=== PATIENT | male | born 1975 | race Caucasian/White ===

== ENCOUNTER 2017-09-05 14:05 | Emergency (ER) | payer SELFPAY ==
--- NOTE | 2017-09-05 14:15 | ED Physician Documentation ---
Abdominal Pain - HISTORIAN Historian: patient - HPI Chief Complaint: Abdominal Pain Additonal Information: 42yo white male with a 30 minute history of sudden left abd/flank pain with radiation into the left testicle. No precipitating factor noted. No modifying factors noted. Patient has become nauseated and diaphoretic with the pain. Has had similar pain with a kidney stone several years ago. Last BM was today and was normal. Urine has been concentrated but no blood noted. Onset: minutes (30 minutes [employer]) Duration: constant, persistent Timing: still present Context: denies: out of country travel, recent trauma Severity: severe Quality: pain, stabbing Associated Symptoms: none. denies: fever, chills Exacerbated by: nothing Relieved by: nothing - ROS CONST: no problems GI/: none. denies: constipation, black stools, bloody urine, bloody stools, dark urine, problems urinating CVS/RESP: none - SOCIAL HX Smoking History: greater than 1 pack/day Alcohol Use: sober Drug Use: none - FAMILY HX Family History: no significant history - PAST HX Past History: none Ischemic Bowel Risk Factors: none Other History: none Surgeries/Procedures: none Immunizations: referred to PCP Home Medications: Ambulatory Orders Medication Instructions Recorded NK [NK] 09/05/17 Allergies/Adverse Reactions: Allergies Allergy/AdvReac Type Severity Reaction Status Date / Time No Known Allergies Allergy Verified 09/05/17 14:15 - VITAL SIGNS Vital Signs: Vital Signs Temp Pulse Resp BP Pulse Ox 96.1 F L 96 H 20 134/85 96 09/05/17 14:05 09/05/17 14:05 09/05/17 14:05 09/05/17 14:05 09/05/17 14:05 - REVIEWED ASSESSMENTS Nursing Assessment Reviewed: Yes Vitals Reviewed: Yes Progress - Progress Progress: 15:10 Patient states that pain went down to about a 2 with [place]. When he came back from [place] started to have some increase pain again. Similar to what he has had earlier. 16:31 Pain is increasing again, is nauseated at this time. ED Results Lab/Radiology - Lab Results Lab Results: Lab Results 09/05/17 09/05/17 14:20 14:20 WBC 11.20 K/ul K/ul (4.00-12.00) RBC 5.18 M/ul M/ul (3.90-5.20) Hgb 15.7 g/dL g/dL (12.0-18.0) Hct 46.0 % % (37.0-53.0) MCV 88.8 fl fl (80.0-100.0) MCH 30.3 pg pg (28.0-34.0) MCHC 34.1 g/dL g/dL (30.0-36.0) RDW 13.3 % % (11.3-14.3) Plt Count 313 K/mm3 K/mm3 (130-400) Neut % (Auto) 55.0 % % (39.0-79.0) Lymph % (Auto) 35.4 % % (16.0-50.0) Beadle % (Auto) 3.5 % % (0.0-11.0) Eos % (Auto) 4.1 % % (0.0-6.8) Baso % (Auto) 0.4 (0.0-1.5) Neut # (Auto) 6.2 # k/uL # k/uL (1.4-7.7) Lymph # (Auto) 4.0 # k/uL # k/uL (0.6-4.0) Beadle # (Auto) 0.4 # k/uL # k/uL (0.0-0.9) Eos # (Auto) 0.5 # k/uL # k/uL (0.0-0.6) Baso # (Auto) 0.0 # k/uL # k/uL (0.0-0.5) Reactive Lymphs % 1.5 % % (0.0-5.0) Reactive Lymphs # 0.2 # k/uL # k/uL (0.0-0.8) Sodium 142 mmol/L mmol/L (136-145) Potassium 3.8 mmol/L mmol/L (3.5-5.1) Chloride 109 mmol/L H mmol/L (98-107) Carbon Dioxide 23 mmol/L mmol/L (22-30) BUN 13 mg/dL mg/dL (9-20) Creatinine 1.00 mg/dL mg/dL (0.66-1.25) Estimated Creat Clear 108 Est GFR ( Amer) > 60 (60 - ) Est GFR (Non-Af Amer) > 60 (60 - ) Glucose 133 mg/dL H mg/dL (74-106) Calcium 9.7 mg/dL mg/dL (8.4-10.2) Total Bilirubin 0.1 mg/dL L mg/dL (0.2-1.3) AST 25 U/L U/L (15-46) ALT 35 U/L U/L (13-69) Alkaline Phosphatase 105 U/L U/L (38-126) Total Protein 7.6 g/dL g/dL (6.3-8.2) Albumin 4.5 g/dL g/dL (3.5-5.0) Lipase 37 U/L U/L (23-300) - Radiology Radiology Impressions: Examination: CT Abdomen/pelvis History: PT STATES LEFT FLANK PAIN. Hx OF KIDNEY STONES (Hx) / ITS.REASON kidney stone protochol, left flank/bd pain (DICOM Hx) Comparison exams: None available Technique: CT Abdomen/pelvis without IV protocol. Findings: Mild prominence of the left kidney when compared with the right. Bilateral 1 mm calyceal calcifications. Prominence of the left ureter in its course through the abdomen and pelvis. No central calcification. Just within the bladder at the left ureterovesicular junction is a 3 mm calcification. Right ureter without abnormal dilation or calcification. Liver, spleen, adrenals, pancreas, kidneys and gallbladder are without gross irregularity given exam technique. No gallstone. Abdominal aorta without aneurysm. Mild eripheral atherosclerotic disease. Cardiac silhouette is not enlarged. Mild anterior pericardial thickening. Bowel unopacified limiting evaluation. No abnormal dilation. Stool within the large bowel limiting sensitivity. No mesenteric inflammatory changes or free fluid. Appendix not visualized. Osseous structures within normal limits. Lung bases demonstrate atelectasis. No effusion. Impression: 3 mm calcification just within the bladder at the left ureterovesicular junction consistent with recently passed ureterolithiasis. Residual dilation the left ureter and prominence of the left kidney. Bilateral nephrolithiasis. No abdominal mass or acute inflammatory process. No abnormal bowel dilation or inflammation. No gallstone. No lung base focal consolidation or effusion. - Orders Orders: ED Orders Category Date Time Status CT ABD & PELVIS W/O CON Stat Exams 09/05/17 Completed CBC/PLATELET/DIFF Routine Lab 09/05/17 14:20 Completed CMP Routine Lab 09/05/17 14:20 Completed LIPASE Routine Lab 09/05/17 14:20 Completed URINALYSIS Routine Lab 09/05/17 Ordered 0.9 % Sodium Chloride [Normal Saline] 1,000 ml Med 09/05/17 15:30 Ordered IV .Q1H Ketorolac Tromethamine [Toradol] Med 09/05/17 14:15 Discontinued 30 mg IVP NOW ONE Ketorolac Tromethamine [Toradol] Med 09/05/17 16:03 Discontinued 30 mg IVP NOW ONE Ondansetron HCl/Pf [Zofran 4 mg/2 ml] Med 09/05/17 16:37 Discontinued 4 mg IVP NOW ONE Tamsulosin HCl [Flomax] Med 09/05/17 18:00 Ordered 0.4 mg PO [id number] fentaNYL CITRATE/PF [Duragesic] Med 09/05/17 15:16 Discontinued 50 mcg IVP NOW ONE fentaNYL CITRATE/PF [Duragesic] Med 09/05/17 16:38 Discontinued 50 mcg IVP NOW ONE Abdominal Pain Physical Exam - Physical Exam General Appearance: alert, severe distress NECK: normal inspection, supple. No: lymphadenopathy, stiff neck RESPIRATORY: no resp distress, chest non-tender, breath sounds normal. No: wheezes, rales, rhonchi CVS: reg rate & rhythm, heart sounds normal, equal pulses, no murmur, no gallop ABDOMEN: soft, no organomegaly, no abdominal bruit, no distension, tenderness ( diffuse in the suprapubic and LLQ area), decreased BS. No: rebound, guarding MALE GENITAL: normal genitalia, no hernia. No: scrotum tenderness (R), scrotum tenderness (L), testicular tenderness (R), testicular tenderness (L), urethral discharge BACK: CVA tenderness (L) SKIN: warm/dry, normal color EXTREMITIES: non-tender NEURO: oriented X3, CN's nml as tested, motor nml, sensation nml, mood/affect nml, cognition normal Vital Signs: Vital Signs Temp Pulse Resp BP Pulse Ox 96.1 F L 96 H 20 134/85 96 09/05/17 14:05 09/05/17 14:05 09/05/17 14:05 09/05/17 14:05 09/05/17 14:05 Discharge Clincal Impression: Kidney stone on left side Referrals: Shabana Reina MD [STAFF PHYSICIAN] - 2 Days Disposition: [facility] Decision to Admit: [id number] Date of Decison to Admit: 09/05/17 Decision Time: 16:45
[2017-09-05] MEDS: KETOROLAC TROMETHAMINE 30 MG/1ML VIAL IVP ONE ×2 (14:20→16:09)
[2017-09-05 14:25] LABS: BASOPHILS % 0.4 (0.0-1.5); EOSINOPHILS % 4.1 % (0.0-6.8); MEAN CORPUSCULAR HEMOGLOBIN 30.3 pg (28.0-34.0); MEAN CORPUSCULAR VOLUME 88.8 fl (80.0-100.0); MONOCYTES % 3.5 % (0.0-11.0); NEUTROPHILS # 6.2 # k/uL (1.4-7.7)
[2017-09-05 14:37] LABS: eGFR (African) > 60; eGFR (Non-African) > 60
[2017-09-05] MEDS ORDERED: 0.9 % SODIUM CHLORIDE 1,000 ML IV ONE (15:16)
[2017-09-05] MEDS ORDERED: TAMSULOSIN HCL 0.4 MG CAP.ER.24H PO ONE (15:19)
[2017-09-05] MEDS: TAMSULOSIN HCL 0.4 MG CAP.ER.24H PO SCH (15:25)
[2017-09-05] MEDS: 0.9 % SODIUM CHLORIDE 1,000 ML IV SCH (15:25)
[2017-09-05] MEDS: fentaNYL CITRATE/PF 100 MCG/ 2ML AMP IVP ONE (15:30)
--- NOTE | 2017-09-05 15:31 | Diagnostic Imaging Report ---
KRISTI GOMEZ [facility] [id number] [facility] [address] [place], [place]. [address] Report Submission Date: September 05, 2017 3:25:03 PM CDT Patient Study Name: SARAH MORA Date: September 05, 2017 2:42:53 PM CDT Modality Type: CT\SR Gender: M Description: CT ABD PELVIS W/O CO : 71 Institution: [facility] Physician: KRISTI GOMEZ Examination: CT Abdomen/pelvis History: PT STATES LEFT FLANK PAIN. Hx OF KIDNEY STONES (Hx) / ITS.REASON kidney stone protochol, left flank/bd pain (DICOM Hx) Comparison exams: None available Technique: CT Abdomen/pelvis without IV protocol. Findings: Mild prominence of the left kidney when compared with the right. Bilateral 1 mm calyceal calcifications. Prominence of the left ureter in its course through the abdomen and pelvis. No central calcification. Just within the bladder at the left ureterovesicular junction is a 3 mm calcification. Right ureter without abnormal dilation or calcification. Liver, spleen, adrenals, pancreas, kidneys and gallbladder are without gross irregularity given exam technique. No gallstone. Abdominal aorta without aneurysm. Mild eripheral atherosclerotic disease. Cardiac silhouette is not enlarged. Mild anterior pericardial thickening. Bowel unopacified limiting evaluation. No abnormal dilation. Stool within the large bowel limiting sensitivity. No mesenteric inflammatory changes or free fluid. Appendix not visualized. Osseous structures within normal limits. Lung bases demonstrate atelectasis. No effusion. Impression: 3 mm calcification just within the bladder at the left ureterovesicular junction consistent with recently passed ureterolithiasis. Residual dilation the left ureter and prominence of the left kidney. Bilateral nephrolithiasis. No abdominal mass or acute inflammatory process. No abnormal bowel dilation or inflammation. No gallstone. No lung base focal consolidation or effusion. Electronically signed on September 05, 2017 3:25:03 PM CDT by: Jace MANZO
[2017-09-05] MEDS ORDERED: fentaNYL CITRATE/PF 100 MCG/ 2ML AMP IVP ONE (16:38)
[2017-09-05] MEDS: ONDANSETRON HCL/PF 4 MG/ 2ML VIAL IVP ONE (16:49)
[2017-09-05 17:20] VITALS: BP 129/61
== END 2017-09-05 17:15 | disposition short-term general hospital (02) ==
LOC: ED 14:05
DX: N20.0 Calculus of kidney (principal)
CPT/HCPCS: 74176; 80053; 83690; 85025; J1885; J2405; J3010; J7030; 96365; 96366; 96375; 96376; 99285; S1016